=== PATIENT | male | born 1955 | race Caucasian/White ===

== ENCOUNTER → 2017-02-12 | Outpatient (CLI) | payer BC | LOC: RT 09:50 | PROVIDERS: ATTEND Internal Medicine | DX: I10 Essential (primary) hypertension (principal) | CPT/HCPCS: 93005; 93010 ==

== ENCOUNTER → 2017-02-15 | Outpatient (CLI) | payer BC ==
[2017-02-15 07:54] LABS: BASOPHILS # (AUTO) 0.1 X10^3/uL (0.0-0.1); BASOPHILS % (AUTO) 1.2 % (0.2-1.0); EOSINOPHILS # (AUTO) 0.6 x10^3/uL (0.0-0.2); EOSINOPHILS % (AUTO) 5.3 % (0.9-2.9); HEMATOCRIT 43.9 % (42.0-54.0); LYMPHOCYTES # (AUTO) 2.3 X10^3/uL (1.3-2.9); LYMPHOCYTES % (AUTO) 21.9 % (21.0-51.0); MEAN CORPUSCULAR HEMOGLOBIN 28.9 pg (27.0-34.0); MEAN CORPUSCULAR HGB CONC 34.1 g/dL (33.0-35.0); MEAN PLATELET VOLUME 9.6 fL (7.4-11.0); MONOCYTES # (AUTO) 0.9 x10^3/uL (0.3-0.8); NEUTROPHILS # (AUTO) 6.8 x10^3/uL (2.2-4.8); NEUTROPHILS % (AUTO) 63.6 % (42.0-75.0); PLATELET COUNT 166 X10^3/uL (150.0-450.0); RED BLOOD COUNT 5.17 X10^6/uL (4.7-6.0); RED CELL DISTRIBUTION WIDTH 14.2 % (11.6-16.5); WHITE BLOOD COUNT 10.7 X10^3/uL (3.6-10.0)
[2017-02-15 08:25] LABS: ALANINE AMINOTRANSFERASE 26 Units/L (12-78); ALBUMIN 3.8 g/dL (3.4-5.0); ALKALINE PHOSPHATASE 85 Units/L (46-116); ASPARTATE AMINO TRANSFERASE 20 Units/L (15-37); BLOOD UREA NITROGEN 18 mg/dL (7-18); CALCIUM 9.2 mg/dL (8.5-10.1); CARBON DIOXIDE 28.4 mmol/L (21-32); CHLORIDE 107 mmol/L (98-107); CHOL/HDL RATIO 3.4 (0.0-5.0); CHOLESTEROL 200 mg/dL (0-200); CREATININE 0.97 mg/dL (0.70-1.30); FREE T4 (FREE THYROXINE) 1.04 ng/dL (0.76-1.46); HDL CHOLESTEROL 58 mg/dL (40-60); SODIUM 142 mmol/L (136-145); TOTAL PROTEIN 6.9 g/dL (6.4-8.2); TRIGLYCERIDES 84 mg/dL (0-150); TSH (3RD GENERATION) 2.513 uIU/mL (0.358-3.74); eGFR BLACK RACES > 60 (>60); eGFR NON BLACK RACES > 60 (>60)
[2017-02-15 08:36] LABS: TOTAL PSA 0.86 ng/mL (0.13-4.0)
== END ==
LOC: LAB 07:27
PROVIDERS: ATTEND Internal Medicine
DX: Z00.00 Encounter for general adult medical examination without abnormal findings (principal)
CPT/HCPCS: 36415; 80053; 80061; 84153; 84439; 84443; 85025

== ENCOUNTER → 2017-08-11 | Outpatient (CLI) | payer BC ==
[2017-08-11 13:29] LABS: BILIRUBIN,URINE NEGATIVE (NEGATIVE); BLOOD/HEMOGLOBIN,URINE NEGATIVE (NEGATIVE); GLUCOSE, URINE NEGATIVE (NEGATIVE); KETONES,URINE NEGATIVE (NEGATIVE); LEUKOCYTE ESTERASE ,URINE NEGATIVE (NEGATIVE); NITRITES,URINE NEGATIVE (NEGATIVE); PROTEIN,URINE NEGATIVE (NEGATIVE); UROBILINOGEN,URINE NORMAL (NORMAL)
[2017-08-11 13:44] LABS: APPEARANCE,URINE CLEAR (CLEAR); COLOR,URINE YELLOW (YELLOW)
== END ==
LOC: LAB 12:49
PROVIDERS: ATTEND Internal Medicine
DX: E11.9 Type 2 diabetes mellitus without complications (principal)
CPT/HCPCS: 36415; 81003; 83036

== ENCOUNTER 2017-11-29 09:22 | Observation (INO) ==
[2017-11-29] MEDS ORDERED: NS 1000 ML 1,000 ML IV ONE (09:35)
--- NOTE | 2017-11-29 09:45 | DR.HYPOGLY ---
HPI Time Seen Time seen: 09:32 PCP Primary Care Physician: QING HPI Comment HPI Comment: GETTING WORSE. DIABETIC AND GLUSE IS BEING RUNNING HIGH. NO FEVER. HAVING POLYURIA. NO DYSURIA. DULLNESS IN THE HEAD AND CHEST DISCOMFORT. PATIENT WAS DIAPHORETIC ON AND OFF AT HOME. TRATED FOR HYPOGLYCEMIA 2 WEEKS AGO. Complaint Chief Complaint Doctors Comments: WEAKNESS, FATIGUE, MALAISE AND SOB SINCE WEDNESDAY. Chief Complaint:: PT STATED THAT HIS BLOOD SUGAR HAS BEEN RUNNING HIGH AT HOME. PT BLOOD SUGAR AT HOME WAS 232. PATIENT ALSO STATED THAT HE HAS BEEN SICK ALL WEEKEND LONG. Nurses notes reviewed Nurses Notes Review: Yes Source History Provided: Patient and Family Member Mode of Arrival Mode of Arrival: Wheelchair Timing Onset of Chief Complaint: 11/29/17 Came on: Suddenly Duration Duration: Constant Duration: Days Context Elton: Shaky Symptoms: Generalized weakness History of: Diabetes, Oral hypoglycemic use, Hypoglycemic episodes and Hyperglycemic episodes Prehospital care: None Modifying factors Improves: Nothing Associated signs and symptoms Associated signs and symptoms: Chest pain and Nausea PMH PMH Past Medical History: Yes Past Medical History: Diabetes and Hypertension Past Medical History Comment: BLOOD CLOTS Past Surgical History: No Family History History of Family Medical Conditions: Yes Family Medical History: Diabetes Mellitus Social History Does patient currently use any type of tobacco product: No Have you used tobacco products in the last 12 months: No Type of Tobacco Use: None Does any household member use tobacco: No Alcohol Use: None Do you use any recreational Drugs:: No Lives With: Family Lives Where: Home infectious screening In the last 2 months have you had wt loss of >10#?: NO Have you had fever, night sweats or hemotysis?: No Have you traveled outside the country in the last 6 months?: No Isolation: Standard ROS Review of Systems Constitutional: Diaphoresis, Malaise, Weakness and Fatigue; negative Chills and Fever Eyes: No Symptoms Reported ENTM: No Symptoms Reported Respiratoy: Short of Breath and Other (TACHYPNEA.) Cardiovascular: Chest Pain (DISCOMFORT.); negative Edema Gastrointestinal/Abdominal: Nausea Genitourinary: No Symptoms Reported Neurological: Headache (DULL ACHE), Weakness and Dizziness Musculoskeletal: No Symptoms Reported Integumentary: No Symptoms Reported Hematologic/Lymphatic: No Symptoms Reported Endocrine: No Symptoms Reported Psychiatric: No Symptoms Reported All Other Systems: Reviewed and Negative PE Vital Signs Vitals: Temperature 98.7 F Pulse Rate [Right Brachial] 69 Pulse Rate 68 Respiratory Rate 22 Blood Pressure [Right Arm] 176/81 Blood Pressure 214/99 O2 Sat by Pulse Oximetry 100 General Limitations: No Limitations General Appearance: Alert and In Distress Eyes Eye exam: Normal Appearance Pupils: Regular, Round: Bilateral and Reactive: Bilateral Sclera/Conjunctival: Normal Inspection: Bilateral ENT ENT Exam: Normal Exam Nose Exam: Normal Nose Exam Mouth Exam: Normal Inspection Throat Exam: Normal Inspection Neck Neck Exam: Normal Inspection and Trachea Midline Chest Chest Inspection: Normal Inspection and Symmetric Chest Wall Rise Respiratory Respiratory Exam: Bilateral: Rhonchi and Lower: Rhonchi Cardiovascular Cardiovascular Exam: Regular Rate, Normal Rhythm and Bradycardia Abdominal Exam Abdominal Exam: Normal Inspection, Normal Bowel Sounds and Soft; negative Tenderness Back Back Exam: Normal Inspection Neurologic Neurological Exam: Alert, Oriented X3 and CN II-XII Intact; negative Motor Sensory Deficit Cranial Nerve Exam: EOM Function (II, III, IV, ): Normal, Facial Sensation (V) : Normal, Facial Palsy (VII): Normal, Gag reflex (XI): Normal, Spinal Accessory Function (XI): Normal and Tongue Deviation: Normal Motor Strength - LUE: 5/5 Motor Strength - RUE: 5/5 Motor Strength - LLE: 5/5 Motor Strength - RLE: 5/5 Upper Motor Neuron Exam: Babinski Sign: Normal Skin Skin Exam: Dry MDM Additional information Additional Information Obtained From: Family Differential diagnosis Differential diagnosis: Hypoglycemia and Sepsis (UTI, DKA, DEHYDRATION, MT) COURSE Treatment Treatment: SEE ORDERS. Education/Counseling Education/Counseling: Patient, Family and Education Educated On: Diagnosis ROR Labs Reviewed Laboratory Results Reviewed?: Yes Result Diagrams: 11/29/17 09:46 11/29/17 09:46 Laboratory: WBC 12.3 X10^3/uL (3.6-10.0) H 11/29/17 09:46 RBC 5.41 X10^6/uL (4.7-6.0) 11/29/17 09:46 Hgb 15.9 g/dL (13.5-18.0) 11/29/17 09:46 Hct 45.6 % (42.0-54.0) 11/29/17 09:46 MCV 84.3 fL (80.0-100.0) 11/29/17 09:46 MCH 29.4 pg (27.0-34.0) 11/29/17 09:46 MCHC 34.9 g/dL (33.0-35.0) 11/29/17 09:46 RDW 14.6 % (11.6-16.5) 11/29/17 09:46 Plt Count 342 X10^3/uL (150.0-450.0) 11/29/17 09:46 MPV 8.4 fL (7.4-11.0) 11/29/17 09:46 Neut % (Auto) 77.7 % (42.0-75.0) H 11/29/17 09:46 Lymph % (Auto) 15.3 % (21.0-51.0) L 11/29/17 09:46 Jackson % (Auto) 5.3 % (0.0-13.0) 11/29/17 09:46 Eos % (Auto) 0.7 % (0.9-2.9) L 11/29/17 09:46 Baso % (Auto) 1.0 % (0.2-1.0) 11/29/17 09:46 Neut # (Auto) 9.6 x10^3/uL (2.2-4.8) H 11/29/17 09:46 Lymph # (Auto) 1.9 X10^3/uL (1.3-2.9) 11/29/17 09:46 Jackson # (Auto) 0.6 x10^3/uL (0.3-0.8) 11/29/17 09:46 Eos # (Auto) 0.1 x10^3/uL (0.0-0.2) 11/29/17 09:46 Baso # (Auto) 0.1 X10^3/uL (0.0-0.1) 11/29/17 09:46 Absolute Nucleated RBC 0.0 /100WBC 11/29/17 09:46 Sample Site Rr 11/29/17 10:05 ABG pH 7.630 (7.35-7.45) H* 11/29/17 10:05 ABG pCO2 21.0 mmHg (35.0-45.0) L 11/29/17 10:05 ABG pO2 103.0 mmHg (80.0-100.0) H 11/29/17 10:05 ABG HCO3 22.1 mmol/L (22-26) 11/29/17 10:05 ABG O2 Saturation 99.0 % (90-100) 11/29/17 10:05 ABG Base Excess 2.6 mmol/L (-2.0-2.0) H 11/29/17 10:05 Avel Test Pos 11/29/17 10:05 FiO2 21.000 11/29/17 10:05 Blood Gas Comments Pt sameera well. gb 11/29/17 10:05 Sodium 136 mmol/L (136-145) 11/29/17 09:46 Corrected Sodium 138 mmol/L (136-145) 11/29/17 09:46 Potassium 3.7 mmol/L (3.5-5.1) 11/29/17 09:46 Chloride 102 mmol/L (98-107) 11/29/17 09:46 Carbon Dioxide 24.3 mmol/L (21-32) 11/29/17 09:46 BUN 13 mg/dL (7-18) 11/29/17 09:46 Creatinine 0.93 mg/dL (0.70-1.30) 11/29/17 09:46 Est GFR (MDRD) Af Amer > 60 (>60) 11/29/17 09:46 Est GFR (MDRD) Non-Af > 60 (>60) 11/29/17 09:46 Glucose 195 mg/dL (65-99) H 11/29/17 09:46 Calcium 9.5 mg/dL (8.5-10.1) 11/29/17 09:46 Corrected Calcium TNP 11/29/17 09:46 Total Bilirubin 0.50 mg/dL (0.2-1.0) 11/29/17 09:46 AST 17 Units/L (15-37) 11/29/17 09:46 ALT 28 Units/L (12-78) 11/29/17 09:46 Alkaline Phosphatase 90 Units/L (46-116) 11/29/17 09:46 Creatine Kinase 48 Units/L (39-308) 11/29/17 09:46 CK-MB (CK-2) 1.3 ng/mL (0-4.0) 11/29/17 09:46 CK/CKMB % Calc 2.7 % (<4) 11/29/17 09:46 Troponin I < 0.02 ng/mL (0-1.5) 11/29/17 09:46 Total Protein 7.9 g/dL (6.4-8.2) 11/29/17 09:46 Albumin 4.1 g/dL (3.4-5.0) 11/29/17 09:46 Globulin 3.8 g/dL (2.5-4.5) 11/29/17 09:46 Albumin/Globulin Ratio 1.1 Ratio (1.1-2.1) 11/29/17 09:46 Acetone, Semi-Quant Negative (NEGATIVE) 11/29/17 09:46 XRAY XRAY Interpreted by: Radiologist XRAY Findings: REPORT DISCUSS WITH PATIENT. EKG Rate: 59 Bishop: Normal Rhythm: NSR Block: None Hypertrophy: LVH ST: Old, Inf and Infarct Diagnosis Discharge Problem: Generalized weakness, Uncontrolled diabetes mellitus, Hypertension, Alkalosis, Chest pain, rule out acute myocardial infarction
--- NOTE | 2017-11-29 09:48 | RAD ---
HISTORY: Hyperglycemia Study: Chest AP portable Comparison: None Findings: The heart is enlarged. No congestive heart failure is noted. No acute alveolar infiltrates or pleural effusions are identified. Chronic appearing interstitial lung changes are present. The bony thorax i s unremarkable. IMPRESSION: Moderate cardiomegaly without congestive heart failure Interstitial lung changes likely chronic Reported By:
[2017-11-29 09:57] LABS: BASOPHILS # (AUTO) 0.1 X10^3/uL (0.0-0.1); EOSINOPHILS # (AUTO) 0.1 x10^3/uL (0.0-0.2); EOSINOPHILS % (AUTO) 0.7 % (0.9-2.9); HEMATOCRIT 45.6 % (42.0-54.0); HEMOGLOBIN 15.9 g/dL (13.5-18.0); LYMPHOCYTES # (AUTO) 1.9 X10^3/uL (1.3-2.9); LYMPHOCYTES % (AUTO) 15.3 % (21.0-51.0); MEAN CORPUSCULAR HEMOGLOBIN 29.4 pg (27.0-34.0); MEAN CORPUSCULAR HGB CONC 34.9 g/dL (33.0-35.0); MEAN CORPUSCULAR VOLUME 84.3 fL (80.0-100.0); MEAN PLATELET VOLUME 8.4 fL (7.4-11.0); MONOCYTES # (AUTO) 0.6 x10^3/uL (0.3-0.8); MONOCYTES % (AUTO) 5.3 % (0.0-13.0); NEUTROPHILS # (AUTO) 9.6 x10^3/uL (2.2-4.8); NEUTROPHILS % (AUTO) 77.7 % (42.0-75.0); PLATELET COUNT 342 X10^3/uL (150.0-450.0); RED BLOOD COUNT 5.41 X10^6/uL (4.7-6.0); RED CELL DISTRIBUTION WIDTH 14.6 % (11.6-16.5); WHITE BLOOD COUNT 12.3 X10^3/uL (3.6-10.0)
[2017-11-29] MEDS ORDERED: APRESOLINE TAB 10 MG PO ONE (10:03)
[2017-11-29] MEDS: ZESTRIL TAB 40 MG PO SCH (10:04)
[2017-11-29 10:10] LABS: ABG BASE EXCESS 2.6 mmol/L (-2.0-2.0); ABG HCO3 22.1 mmol/L (22-26)
[2017-11-29 10:11] LABS: ABG ALLEN TEST POS
[2017-11-29 10:15] LABS: BLOOD UREA NITROGEN 13 mg/dL (7-18); CALCIUM 9.5 mg/dL (8.5-10.1); CARBON DIOXIDE 24.3 mmol/L (21-32); CHLORIDE 102 mmol/L (98-107); COR NA(FOR HYPERGLY) 138 mmol/L (136-145); CREATININE 0.93 mg/dL (0.70-1.30); SERUM ACETONE NEGATIVE (NEGATIVE); SODIUM 136 mmol/L (136-145); TROPONIN I < 0.02 ng/mL (0-1.5); eGFR NON BLACK RACES > 60 (>60)
[2017-11-29 10:19] LABS: ALANINE AMINOTRANSFERASE 28 Units/L (12-78); ALBUMIN 4.1 g/dL (3.4-5.0); ALKALINE PHOSPHATASE 90 Units/L (46-116); ASPARTATE AMINO TRANSFERASE 17 Units/L (15-37); CKMB % 2.7 % (<4); CREATINE KINASE 48 Units/L (39-308); CREATINE KINASE MB 1.3 ng/mL (0-4.0); TOTAL PROTEIN 7.9 g/dL (6.4-8.2)
[2017-11-29 11:39] LABS: B-TYPE NATRIURETIC PEPTIDE 125 pg/mL (0-79)
[2017-11-29 11:44] LABS: BILIRUBIN,URINE NEGATIVE (NEGATIVE); BLOOD/HEMOGLOBIN,URINE NEGATIVE (NEGATIVE); GLUCOSE, URINE 1+ (NEGATIVE); KETONES,URINE 1+ (NEGATIVE); LEUKOCYTE ESTERASE ,URINE NEGATIVE (NEGATIVE); NITRITES,URINE NEGATIVE (NEGATIVE); PROTEIN,URINE NEGATIVE (NEGATIVE); UROBILINOGEN,URINE NORMAL (NORMAL)
[2017-11-29 11:50] LABS: APPEARANCE,URINE HAZY (CLEAR); COLOR,URINE YELLOW (YELLOW)
[2017-11-29 13:28] VITALS: BMI 33.8
[2017-11-29] MEDS: NS 1000 ML 1,000 ML IV SCH (13:53)
[2017-11-29] MEDS: NEURONTIN TAB 600 MG PO SCH ×2 (13:53→21:03)
[2017-11-29] MEDS: PROTONIX TAB 40 MG PO SCH (13:53)
[2017-11-29 15:50] LABS: CKMB % 3.6 % (<4); CREATINE KINASE 45 Units/L (39-308); CREATINE KINASE MB 1.6 ng/mL (0-4.0); TROPONIN I < 0.02 ng/mL (0-1.5)
[2017-11-29 15:55] LABS: BILIRUBIN,URINE NEGATIVE (NEGATIVE); BLOOD/HEMOGLOBIN,URINE NEGATIVE (NEGATIVE); GLUCOSE, URINE NEGATIVE (NEGATIVE); KETONES,URINE NEGATIVE (NEGATIVE); LEUKOCYTE ESTERASE ,URINE NEGATIVE (NEGATIVE); NITRITES,URINE NEGATIVE (NEGATIVE); PROTEIN,URINE NEGATIVE (NEGATIVE); UROBILINOGEN,URINE NORMAL (NORMAL)
[2017-11-29 16:12] LABS: APPEARANCE,URINE CLEAR (CLEAR); COLOR,URINE YELLOW (YELLOW)
[2017-11-29] MEDS: CATAPRES TAB 0.1 MG PO SCH (20:56)
[2017-11-29] MEDS: CARDURA PO SCH (20:56)
[2017-11-29] MEDS: APRESOLINE TAB 10 MG PO SCH (20:56)
[2017-11-29] MEDS: LOPID PO SCH (20:56)
[2017-11-29 22:51] LABS: CKMB % 2.7 % (<4); CREATINE KINASE 44 Units/L (39-308); CREATINE KINASE MB 1.2 ng/mL (0-4.0); TROPONIN I < 0.02 ng/mL (0-1.5)
[2017-11-30] MEDS: NS 1000 ML 1,000 ML IV SCH ×3 (00:35→14:12)
[2017-11-30] MEDS: NEURONTIN TAB 600 MG PO SCH ×3 (05:15→21:29)
[2017-11-30 05:21] LABS: BASOPHILS # (AUTO) 0.1 X10^3/uL (0.0-0.1); EOSINOPHILS # (AUTO) 0.2 x10^3/uL (0.0-0.2); EOSINOPHILS % (AUTO) 1.8 % (0.9-2.9); HEMATOCRIT 41.9 % (42.0-54.0); HEMOGLOBIN 14.5 g/dL (13.5-18.0); LYMPHOCYTES % (AUTO) 15.9 % (21.0-51.0); MEAN CORPUSCULAR HEMOGLOBIN 29.3 pg (27.0-34.0); MEAN CORPUSCULAR HGB CONC 34.6 g/dL (33.0-35.0); MEAN CORPUSCULAR VOLUME 84.8 fL (80.0-100.0); MEAN PLATELET VOLUME 8.9 fL (7.4-11.0); NEUTROPHILS # (AUTO) 9.1 x10^3/uL (2.2-4.8); NEUTROPHILS % (AUTO) 73.3 % (42.0-75.0); PLATELET COUNT 246 X10^3/uL (150.0-450.0); RED BLOOD COUNT 4.94 X10^6/uL (4.7-6.0); RED CELL DISTRIBUTION WIDTH 14.5 % (11.6-16.5); WHITE BLOOD COUNT 12.4 X10^3/uL (3.6-10.0)
[2017-11-30 05:26] LABS: ALANINE AMINOTRANSFERASE 23 Units/L (12-78); ALBUMIN 3.5 g/dL (3.4-5.0); ALKALINE PHOSPHATASE 78 Units/L (46-116); ASPARTATE AMINO TRANSFERASE 13 Units/L (15-37); BLOOD UREA NITROGEN 14 mg/dL (7-18); CALCIUM 8.6 mg/dL (8.5-10.1); CARBON DIOXIDE 25.1 mmol/L (21-32); CHLORIDE 107 mmol/L (98-107); CHOL/HDL RATIO 4.5 (0.0-5.0); CHOLESTEROL 236 mg/dL (0-200); CREATININE 0.89 mg/dL (0.70-1.30); HDL CHOLESTEROL 53 mg/dL (40-60); SODIUM 141 mmol/L (136-145); TOTAL PROTEIN 6.9 g/dL (6.4-8.2); TRIGLYCERIDES 131 mg/dL (0-150); eGFR NON BLACK RACES > 60 (>60)
[2017-11-30] MEDS: APRESOLINE TAB 10 MG PO SCH ×2 (08:32→20:39)
[2017-11-30] MEDS: PROTONIX TAB 40 MG PO SCH (08:32)
[2017-11-30] MEDS: ZESTRIL TAB 40 MG PO SCH (08:32)
[2017-11-30] MEDS ORDERED: ZESTRIL TAB 40 MG PO SCH (09:00)
[2017-11-30] MEDS ORDERED: NS 100 ML IV 100 ML IV ONE (11:56)
--- NOTE | 2017-11-30 13:10 | CT ---
HISTORY: Chest pain shortness of breath, elevated D-dimer Study: CT chest with contrast for pulmonary embolus Comparison: None Technique: Axial post-contrast images with coronal, sagittal, and three-dimensional maximum intensity projection images obtained and evaluated. Dose reduction procedures were used with mA/kv adjusted fo r body size. Findings: There is no evidence for acute pulmonary thromboembolic disease. Examination of the mediastinum demon strated no evidence for mediastinal masses, enlarged mediastinal adenopathy, or enlarged hilar adenop athy. Calcific atherosclerotic changes present in a nondilated thoracic aorta. Mild coronary artery c alcifications are present. No pleural effusions are identified. No chest wall or axillary abnormality is identified. Those portions of the upper abdominal organs visualized were within normal limits wit h the exception of cholelithiasis. Examination of the lung roach demonstrated mild interstitial lung changes to be present along with mild paraseptal emphysematous changes. No nodules, masses, alveolar infiltrates, areas of consolidation, peribronchial thickening, or bronchiectasis is identified. IMPRESSION: No evidence for acute pulmonary thromboembolic disease Mild interstitial lung changes with mild changes of paraseptal emphysema Reported By:
--- NOTE | 2017-11-30 13:49 | DR.H&P ---
H&P - History & Physical for Day of: H&P Date: 11/29/17 - Chief Complaint Chief Complaint: FATIGUE, "SICK OVER THE WEEKEND, STILL FEEL WEAK, SICK ON STOMACH" - History of Present Illness History of Present Illness: 62 WM ER ADMIT CO HAD VIRUS LIKE ILLNESS OVER THE WEEKEND, STILL FEELS WEAK AND CO CHEST PAIN IN ER. PT HAD ADMISSION LABS, ELEVATED BLOOD SUGAR, ABNORMAL ABG, ELEVATED D DIMER. PT HAS PMH OF DM,HTN, OA. PT ADMITTED FOR SERIAL CE AND EKG'S, IV HDYRATION, BLOOD SUGAR CONTROL - Past Medical History Past Medical History: Hypertension, Diabetes - Past Surgical History Surgical History: No History - Family History Family Medical History: Diabetes Mellitus, Hypertension - Social History Does patient currently use any type of tobacco product: No Have you used tobacco products in the last 12 months: No Type of Tobacco Use: None Does any household member use tobacco: No Alcohol Use: None Drug Use: None - Medications Home Medications: No Known Drug Allergies Allergy (Verified 11/29/17 09:40) CONTINUE taking the following medications aspirin 1 tab PO DAILY 11/29/17 [History] clonidine HCl 0.2 mg PO HS 11/29/17 [History] doxazosin 1 tab PO HS 11/29/17 [History] gabapentin [Neurontin] 1 tab PO TID 11/29/17 [History] gemfibrozil 1 tab PO DAILY 11/29/17 [History] glyburide 1 tab PO BID 11/29/17 [History] hydralazine 1 tab PO BID 11/29/17 [History] lisinopril 1 tab PO DAILY 11/29/17 [History] metformin 0.5 tab PO BID 11/29/17 [History] pantoprazole 1 tab PO DAILY 11/29/17 [History] - Review of Systems Constitutional: Fever, Chills, Weakness Eyes: No Symptoms Reported ENT: No Symptoms Reported Respiratory: SOB with Excertion Cardiovascular: No Symptoms Reported Gastrointestinal: Nausea, Vomiting Genitourinary: No Symptoms Reported Musculoskeletal: Back Pain Skin: No Symptoms Reported Neurological: Weakness - Physical Exam Vital Signs: Temperature 98.1 F Pulse Rate [Right Brachial] 58 Pulse Rate 68 Respiratory Rate 20 Blood Pressure [Right Arm] 128/69 Blood Pressure 214/99 O2 Sat by Pulse Oximetry 99 Oriented: Normal Eyes: Normal Ear: Normal Nose: Normal Throat: Red Respiratory: RLL Diminished, LLL Diminished Cardiovascular: Murmur : Normal Auscultation: Bowel Sounds: Normal Palpation: Normal Tenderness: Epigastric Skin: Decreased Turgur (MILD) Psychiatric: Anxiety Affect: Anxious Speech Pattern: Clear, Appropriate - Assessment/Plan (1) Generalized weakness Status: Acute Plan: ADMIT RESP CONSULT, SERIAL CE AND EKG. BLOOD SUGAR CONTROL, IV HYDRATION. VERIFY HOME MED BP MONITORING. CTA CHEST Q AM R/P PE (2) Uncontrolled diabetes mellitus Qualifiers: Diabetes mellitus type: type 2 Glycemic state: with hyperglycemia Qualified Code(s): E11.65 - Type 2 diabetes mellitus with hyperglycemia Status: Acute (3) Hypertension Qualifiers: Hypertension type: essential hypertension Qualified Code(s): I10 - Essential (primary) hypertension Status: Acute (4) Alkalosis Status: Acute (5) Chest pain, rule out acute myocardial infarction Status: Acute - Allergies Allergies/Adverse Reactions: Allergies Allergy/AdvReac Type Severity Reaction Status Date / Time No Known Drug Allergies Allergy Verified 11/29/17 09:40
[2017-11-30 14:10] LABS: ABG ALLEN TEST POS; ABG BASE EXCESS -0.6 mmol/L (-2.0-2.0); ABG HCO3 23.1 mmol/L (22-26)
[2017-11-30] MEDS ORDERED: DUONEB 0.5 MG/3 MG IN PRN (17:00)
[2017-11-30] MEDS: LOPID PO SCH (20:39)
[2017-11-30] MEDS: CATAPRES TAB 0.1 MG PO SCH (20:39)
[2017-11-30] MEDS: CARDURA PO SCH (20:39)
[2017-12-01] MEDS: NEURONTIN TAB 600 MG PO SCH (05:18)
[2017-12-01 05:27] LABS: ALANINE AMINOTRANSFERASE 21 Units/L (12-78); ALBUMIN 3.2 g/dL (3.4-5.0); ALKALINE PHOSPHATASE 72 Units/L (46-116); ASPARTATE AMINO TRANSFERASE 15 Units/L (15-37); BLOOD UREA NITROGEN 15 mg/dL (7-18); CALCIUM 8.3 mg/dL (8.5-10.1); CARBON DIOXIDE 21.4 mmol/L (21-32); CHLORIDE 107 mmol/L (98-107); COR CA(FOR HYPOALB) 8.9 mg/dL (8.5-10.1); COR NA(FOR HYPERGLY) 139 mmol/L (136-145); CREATININE 0.77 mg/dL (0.70-1.30); SODIUM 139 mmol/L (136-145); TOTAL PROTEIN 6.3 g/dL (6.4-8.2); eGFR NON BLACK RACES > 60 (>60)
[2017-12-01] MEDS: NS 1000 ML 1,000 ML IV SCH (05:28)
[2017-12-01 06:23] LABS: BASOPHILS # (AUTO) 0.1 X10^3/uL (0.0-0.1); BASOPHILS % (AUTO) 0.8 % (0.2-1.0); EOSINOPHILS # (AUTO) 0.2 x10^3/uL (0.0-0.2); EOSINOPHILS % (AUTO) 1.8 % (0.9-2.9); HEMATOCRIT 39.8 % (42.0-54.0); HEMOGLOBIN 13.8 g/dL (13.5-18.0); LYMPHOCYTES # (AUTO) 1.9 X10^3/uL (1.3-2.9); LYMPHOCYTES % (AUTO) 15.5 % (21.0-51.0); MEAN CORPUSCULAR HEMOGLOBIN 29.4 pg (27.0-34.0); MEAN CORPUSCULAR HGB CONC 34.7 g/dL (33.0-35.0); MEAN CORPUSCULAR VOLUME 84.7 fL (80.0-100.0); MEAN PLATELET VOLUME 8.8 fL (7.4-11.0); MONOCYTES # (AUTO) 1.1 x10^3/uL (0.3-0.8); MONOCYTES % (AUTO) 9.1 % (0.0-13.0); NEUTROPHILS # (AUTO) 8.9 x10^3/uL (2.2-4.8); NEUTROPHILS % (AUTO) 72.8 % (42.0-75.0); PLATELET COUNT 208 X10^3/uL (150.0-450.0); RED CELL DISTRIBUTION WIDTH 14.5 % (11.6-16.5); WHITE BLOOD COUNT 12.2 X10^3/uL (3.6-10.0)
[2017-12-01] MEDS: APRESOLINE TAB 10 MG PO SCH (08:22)
[2017-12-01] MEDS: ZESTRIL TAB 40 MG PO SCH (08:22)
[2017-12-01] MEDS: PROTONIX TAB 40 MG PO SCH (08:22)
[2017-12-01] MEDS ORDERED: LEVAQUIN PREMIX IV 500 MG 500 MG/100 ML BAG IV SCH (09:00)
[2017-12-01] MEDS ORDERED: SALINE 3% 15 ML NEB TX ONE (09:07)
[2017-12-01] MEDS ORDERED: SALINE 3% 15 ML NEB TX NEB ONE (09:10)
[2017-12-01 12:07] VITALS: BP 149/90
== END 2017-12-01 12:33 | disposition home or self-care (01) ==
LOC: MED/SURG 09:22 → ER 09:22 → MED/SURG 12:32
PROVIDERS: ADMIT Internal Medicine; ATTEND Internal Medicine
DX: R53.83 Other fatigue; Z79.899 Other long term (current) drug therapy; E87.3 Alkalosis; R07.89 Other chest pain; E11.65 Type 2 diabetes mellitus with hyperglycemia; R06.02 Shortness of breath; Z79.01 Long term (current) use of anticoagulants; R94.31 Abnormal electrocardiogram [ECG] [EKG]; R53.1 Weakness; I10 Essential (primary) hypertension
CPT/HCPCS: 36415; 36600; 71010; 71045; 71275; 80053; 80061; 81003; 82009; 82550; 82553; 82803; 83880; 84484; 85025; 85378; 87070; 87205; 93005; 93010; 94640; 94760; 96365; 99284; A4222; G0378; J1956; J7030; J7050